=== PATIENT | female | born 1975 | race Two or more races ===

== ENCOUNTER 2020-03-09 08:46 | Emergency (ER) | payer SELFPAY ==
[~2020-03-09] VITALS: Ht 144.8 cm; Wt 68.0 kg
[2020-03-09] MEDS ORDERED: SODIUM CHLORIDE 0.9% 1,000 ML IV ONE (09:30)
[2020-03-09] MEDS ORDERED: KETOROLAC 30MG/ML VIAL IV ONE (09:30)
[2020-03-09] MEDS ORDERED: DIPHENHYDRAMINE 50MG/ML VIAL IV ONE (09:30)
[2020-03-09] MEDS ORDERED: SUMATRIPTAN SUCCINATE 6MG/0.5ML VIAL SUBCUT ONE (09:30)
[2020-03-09 12:55] VITALS: BP 131/66
== END 2020-03-09 13:03 | disposition home or self-care (01) ==
LOC: ER 08:46
DX: G43.909 Migraine, unspecified, not intractable, without status migrainosus (principal); I10 Essential (primary) hypertension; E11.9 Type 2 diabetes mellitus without complications
CPT/HCPCS: 93005; 96372; 96374; 96375; 99284; J1200; J1885; J3030; J7030

== ENCOUNTER 2024-06-25 19:51 | Emergency (ER) | payer OTHER ==
[~2024-06-25] VITALS: Ht 165.1 cm; Wt 86.0 kg
[~2024-06-25 19:51] MED LIST: ASPI-1497 MT; ATOR20TA65 MT; BACL-141 PO; FERR325T30 PO; MAGN400C MT; SIME80TA15 MT; VIT1TABL62 PO; [UNRECOGNIZED DRUG - OTHER] PO
[2024-06-25 20:08] VITALS: TEMP 97.9; O2SAT 99
[2024-06-25] MEDS ORDERED: OFLO5DRO4 LEFT EAR (23:35)
[2024-06-25] MEDS ORDERED: AMOX1TAB16 MT (23:35)
[2024-06-25] MEDS ORDERED: HYDR-4001 MT (23:45)
[2024-06-26] MEDS: AMOXICILLIN/POTASSIUM CLAVULANATE 875/125MG TAB PO ONE (00:12)
[2024-06-26] MEDS: HYDROCODONE/ACETAMINOPHEN 5/325MG TABLET PO ONE (00:13)
[2024-06-26 00:19] VITALS: BP 115/70; PULSE 62; RESP 18; O2SAT 99
== END 2024-06-26 00:20 | disposition home or self-care (01) ==
LOC: ER 19:51
DX: H72.92 Unspecified perforation of tympanic membrane, left ear (principal); I10 Essential (primary) hypertension; Z79.899 Other long term (current) drug therapy; Z79.82 Long term (current) use of aspirin
CPT/HCPCS: 99283